=== PATIENT | male | born 1980 ===

== ENCOUNTER 2016-10-02 17:18 | Emergency (ER) | payer BC | END 2016-10-02 18:11 | disposition left against medical advice (07) | LOC: UCEAST 17:18 | DX: R07.81 Pleurodynia (principal); Z53.21 Procedure and treatment not carried out due to patient leaving prior to being seen by health care provider ==

== ENCOUNTER 2021-06-05 16:05 | Inpatient (IN) ==
[2021-06-05 20:33] LABS: ABS Lymphocytes 1.3 10^3/ul (1.0-4.8); ABS Monocytes 1.2 10^3/ul (0-0.8); ABS Neutrophils 7.4 10^3/ul (1.5-7.7); Eosinophil % 0.1 %; Hematocrit 47 % (42-52); Hemoglobin 16.7 g/dL (14.0-18.0); Lymphocyte % 12.8 %; Mean Corpuscular HGB Conc 36 g/dL (31-36); Mean Corpuscular Hemoglobin 33 pg (27-31); Mean Corpuscular Volume 94 fL (80-94); Mean Platelet Volume 7.8 fL (7.4-10.4); Nucleated Red Blood Cells % 0.4; Platelet Count 222 10^3/uL (150-450); Red Blood Count 5.01 10^6 /uL (4.18-5.48); Red Cell Distribution Width 14 % (10-15)
[2021-06-05 20:50] LABS: ALT 34 U/L (7-52); AST 31 U/L (13-39); Albumin/Globulin Ratio 1.2 (1-3); Alkaline Phosphatase 46 U/L (35-149); Blood Urea Nitrogen 65 mg/dL (6-24); CO2 Carbon Dioxide 18 mmol/L (22-32); Calcium 9.4 mg/dL (8.6-10.3); Chloride 74 mmol/L (101-111); EGFR African American 31.1 (>60); EGFR Non-African American 25.7 (>60); Globulin 3.4 g/dL (2-4); Glucose 130 mg/dL (70-100); Potassium 4.1 mmol/L (3.5-5.0); Total Protein 7.4 g/dL (6.4-8.9)
[2021-06-05 21:01] LABS: Anion Gap 18 mmol/L (2-11)
[2021-06-05 21:04] LABS: Sodium 110 mmol/L (135-145); Troponin I 0.08 ng/mL (<0.03)
[2021-06-05] MEDS ORDERED: NS 0.9% 1000 ml BAG 1,000 ML IV ONE (21:12)
[2021-06-05 21:20] LABS: Rapid COVID-19 Molecular Undetected (Undetected)
[2021-06-05] MEDS ORDERED: Ondansetron 4 mg VIAL 2 MG/ML 2 ml VIAL IV PRN (21:58)
[2021-06-05] MEDS ORDERED: Enoxaparin 30 MG/0.3 ML SYR SUBCUT SCH (22:00)
[2021-06-05 22:19] LABS: Calcium 8.9 mg/dL (8.6-10.3); Potassium 4.2 mmol/L (3.5-5.0)
[2021-06-05 22:25] LABS: EGFR African American 29.5 (>60); EGFR Non-African American 24.4 (>60)
[2021-06-05] MEDS ORDERED: NS 0.9% 1000 ml BAG 1,000 ML IV SCH (22:45)
[2021-06-05 22:47] LABS: Alcohol, S < 13 mg/dL (<13)
[2021-06-05 22:55] LABS: Erythrocyte Sed Rate 0 mm/Hr (0-14)
[2021-06-06] MEDS ORDERED: NS 0.9% 1000 ml BAG 1,000 ML IV ONE (00:38)
[2021-06-06 01:13] LABS: Blood Urea Nitrogen 68 mg/dL (6-24); CO2 Carbon Dioxide 18 mmol/L (22-32); Calcium 8.6 mg/dL (8.6-10.3); Chloride 78 mmol/L (101-111); EGFR African American 31.1 (>60); EGFR Non-African American 25.7 (>60); Glucose 116 mg/dL (70-100); Potassium 3.9 mmol/L (3.5-5.0)
[2021-06-06 01:21] LABS: Anion Gap 13 mmol/L (2-11); Troponin I 0.09 ng/mL (<0.03)
[2021-06-06 01:22] LABS: Sodium 109 mmol/L (135-145)
[2021-06-06 02:51] LABS: Urine Appearance Cloudy; Urine Bilirubin Negative (Negative); Urine Blood Negative (Negative); Urine Color Yellow; Urine Glucose Negative (Negative); Urine Ketones Negative (Negative); Urine Nitrite Negative (Negative); Urine Protein Negative (Negative); Urine Specific Gravity 1.012 (1.002-1.030); Urine Urobilinogen Negative (Negative)
[2021-06-06 03:23] LABS: Phosphorus 5.2 mg/dL (2.5-5.0)
[2021-06-06 03:54] LABS: Urine Creatinine Concentration 144.27 mg/dL; Urine Sodium Concentration < 18 mmol/L
[2021-06-06] MEDS: Pantoprazole VIAL 40 MG VIAL IV SCH ×2 (05:31→17:24)
[2021-06-06 05:54] LABS: ABS Lymphocytes 1.1 10^3/ul (1.0-4.8); ABS Neutrophils 6.4 10^3/ul (1.5-7.7); Eosinophil % 0.3 %; Hematocrit 40 % (42-52); Hemoglobin 14.3 g/dL (14.0-18.0); Lymphocyte % 13.3 %; Mean Corpuscular HGB Conc 36 g/dL (31-36); Mean Corpuscular Hemoglobin 33 pg (27-31); Mean Corpuscular Volume 93 fL (80-94); Nucleated Red Blood Cells % 0.2; Platelet Count 177 10^3/uL (150-450); Red Cell Distribution Width 14 % (10-15); White Blood Count 8.6 10^3/uL (3.5-10.8)
[2021-06-06 06:13] LABS: Blood Urea Nitrogen 68 mg/dL (6-24); CO2 Carbon Dioxide 17 mmol/L (22-32); Calcium 8.1 mg/dL (8.6-10.3); Chloride 80 mmol/L (101-111); EGFR African American 31.1 (>60); EGFR Non-African American 25.7 (>60); Glucose 111 mg/dL (70-100)
[2021-06-06 06:23] LABS: Anion Gap 15 mmol/L (2-11); Sodium 112 mmol/L (135-145); Troponin I 0.09 ng/mL (<0.03)
[2021-06-06] MEDS ORDERED: Perflutren Lipid Microsphere 3 ML VIAL ONE (08:31)
[2021-06-06 09:27] LABS: Calcium 8.1 mg/dL (8.6-10.3); EGFR Non-African American 24.8 (>60); Potassium 4.1 mmol/L (3.5-5.0)
[2021-06-06] MEDS ORDERED: Heparin DRIP 25,000 UNITS BAG 25,000 UNITS/500 ML BAG IV SCH (09:45)
[2021-06-06] MEDS ORDERED: Heparin 5000 UNITS/ML 1 mL VIAL IV SCH (10:00)
[2021-06-06 10:10] LABS: ABS Monocytes 1.1 10^3/ul (0-0.8); ABS Neutrophils 7.4 10^3/ul (1.5-7.7); Eosinophil % 0.3 %; Hematocrit 40 % (42-52); Hemoglobin 14.2 g/dL (14.0-18.0); Lymphocyte % 10.6 %; Mean Corpuscular HGB Conc 35 g/dL (31-36); Mean Corpuscular Hemoglobin 33 pg (27-31); Mean Corpuscular Volume 95 fL (80-94); Mean Platelet Volume 7.9 fL (7.4-10.4); Nucleated Red Blood Cells % 0.1; Platelet Count 175 10^3/uL (150-450); Red Blood Count 4.24 10^6 /uL (4.18-5.48); Red Cell Distribution Width 14 % (10-15); White Blood Count 9.7 10^3/uL (3.5-10.8)
[2021-06-06 10:27] LABS: Blood Urea Nitrogen 74 mg/dL (6-24); EGFR African American 31.1 (>60); EGFR Non-African American 25.7 (>60)
[2021-06-06 14:24] LABS: Blood Urea Nitrogen 72 mg/dL (6-24); CO2 Carbon Dioxide 16 mmol/L (22-32); Calcium 8.2 mg/dL (8.6-10.3); Chloride 82 mmol/L (101-111); EGFR African American 30.1 (>60); EGFR Non-African American 24.9 (>60); Glucose 113 mg/dL (70-100); Potassium 4.1 mmol/L (3.5-5.0)
[2021-06-06 14:38] LABS: Anion Gap 16 mmol/L (2-11); Sodium 114 mmol/L (135-145)
[2021-06-06] MEDS ORDERED: NS 0.9% 500 ml BAG 500 ML IV SCH (15:00)
[2021-06-06 15:15] LABS: Troponin I 0.09 ng/mL (<0.03)
[2021-06-06 16:03] LABS: Troponin I 0.09 ng/mL (<0.03)
[2021-06-06 17:59] LABS: Blood Urea Nitrogen 68 mg/dL (6-24); CO2 Carbon Dioxide 15 mmol/L (22-32); Calcium 8.4 mg/dL (8.6-10.3); Chloride 82 mmol/L (101-111); EGFR African American 30.4 (>60); EGFR Non-African American 25.1 (>60); Glucose 109 mg/dL (70-100)
[2021-06-06 18:04] LABS: Anion Gap 16 mmol/L (2-11); Sodium 113 mmol/L (135-145); Troponin I 0.08 ng/mL (<0.03)
[2021-06-06] MEDS ORDERED: NS 0.9% 1000 ml BAG 1,000 ML IV SCH (19:15)
[2021-06-06] MEDS ORDERED: Norepinephrine 16MCG/ML IVPRE 4,000 MCG/250 ML BAG IV SCH (21:00)
[2021-06-06 21:41] LABS: EGFR African American 31.1 (>60); EGFR Non-African American 25.7 (>60); Potassium 3.9 mmol/L (3.5-5.0)
[2021-06-06 21:55] LABS: Myoglobin 67.9 ng/mL (17.4-105.7)
[2021-06-06 22:03] LABS: TSH Ultra Thyroid Stim Horm 2.47 mcIU/mL (0.34-5.60)
[2021-06-07] MEDS: Heparin 5000 UNITS/ML 1 mL VIAL SUBCUT SCH ×4 (00:19→21:51)
[2021-06-07 01:15] LABS: Influenza A Molecular Negative (Negative); Influenza B Molecular Negative (Negative)
[2021-06-07 01:41] LABS: Urine Creatinine Concentration 131.78 mg/dL
[2021-06-07] MEDS: Pantoprazole VIAL 40 MG VIAL IV SCH ×2 (05:54→15:29)
[2021-06-07 07:31] LABS: EGFR African American 31.8 (>60); EGFR Non-African American 26.3 (>60); Potassium 3.8 mmol/L (3.5-5.0)
[2021-06-07 12:08] LABS: EGFR African American 33.2 (>60); EGFR Non-African American 27.5 (>60); Potassium 3.8 mmol/L (3.5-5.0)
[2021-06-07] MEDS ORDERED: KCL 20 MEQ/100 ML IVPREMIX 20 MEQ/100 ML BAG IV ONE (12:09)
[2021-06-07 17:31] LABS: Calcium 8.4 mg/dL (8.6-10.3); EGFR Non-African American 28.1 (>60)
[2021-06-07 21:12] LABS: Calcium 8.5 mg/dL (8.6-10.3); EGFR African American 37.4 (>60); EGFR Non-African American 30.9 (>60); Potassium 3.6 mmol/L (3.5-5.0)
[2021-06-07] MEDS ORDERED: D5W 250 ml BAG 250 ML IV ONE (21:26)
[2021-06-08 02:10] LABS: Venous Bicarbonate HCO3 21.2 mmol/L (24-28)
[2021-06-08 02:29] LABS: Calcium 8.5 mg/dL (8.6-10.3); EGFR African American 39.5 (>60); EGFR Non-African American 32.6 (>60); Potassium 3.5 mmol/L (3.5-5.0)
[2021-06-08] MEDS ORDERED: KCL 20 MEQ/100 ML IVPREMIX 20 MEQ/100 ML BAG IV ONE ×2 (04:23→06:01)
[2021-06-08] MEDS: Heparin 5000 UNITS/ML 1 mL VIAL SUBCUT SCH ×3 (05:11→22:16)
[2021-06-08] MEDS: Pantoprazole VIAL 40 MG VIAL IV SCH ×2 (05:11→17:58)
[2021-06-08 05:35] LABS: ABS Eosinophils 0.1 10^3/ul (0-0.6); ABS Lymphocytes 1.2 10^3/ul (1.0-4.8); ABS Monocytes 0.6 10^3/ul (0-0.8); ABS Neutrophils 4.1 10^3/ul (1.5-7.7); Hematocrit 39 % (42-52); Hemoglobin 13.5 g/dL (14.0-18.0); Lymphocyte % 20.1 %; Mean Corpuscular HGB Conc 35 g/dL (31-36); Mean Corpuscular Hemoglobin 34 pg (27-31); Mean Corpuscular Volume 96 fL (80-94); Mean Platelet Volume 7.9 fL (7.4-10.4); Platelet Count 153 10^3/uL (150-450); Red Blood Count 4.04 10^6 /uL (4.18-5.48); Red Cell Distribution Width 14 % (10-15)
[2021-06-08 05:55] LABS: Calcium 8.3 mg/dL (8.6-10.3); EGFR Non-African American 35.6 (>60); Magnesium 2.4 mg/dL (1.9-2.7); Phosphorus 3.7 mg/dL (2.5-5.0); Potassium 3.4 mmol/L (3.5-5.0)
[2021-06-08 08:04] LABS: Calcium 8.1 mg/dL (8.6-10.3); EGFR African American 45.6 (>60); EGFR Non-African American 37.7 (>60); Potassium 3.9 mmol/L (3.5-5.0)
[2021-06-08 12:31] LABS: Calcium 8.1 mg/dL (8.6-10.3); EGFR African American 48.4 (>60); Potassium 3.9 mmol/L (3.5-5.0)
[2021-06-08 15:44] LABS: Scleroderma Ab <0.2 U
[2021-06-08 16:15] LABS: Lead,Venous, B < 1.0 mcg/dL (<5.0); Submitting Laboratory Phone 6072744474
[2021-06-08 17:23] LABS: Calcium 8.3 mg/dL (8.6-10.3); EGFR African American 50.6 (>60); EGFR Non-African American 41.8 (>60); Potassium 3.7 mmol/L (3.5-5.0)
[2021-06-08 20:43] LABS: Calcium 8.4 mg/dL (8.6-10.3); EGFR African American 52.6 (>60); EGFR Non-African American 43.5 (>60); Potassium 3.6 mmol/L (3.5-5.0)
[2021-06-09] MEDS: Pantoprazole VIAL 40 MG VIAL IV SCH (05:03)
[2021-06-09] MEDS: Heparin 5000 UNITS/ML 1 mL VIAL SUBCUT SCH ×2 (05:03→14:34)
[2021-06-09 05:10] LABS: ABS Eosinophils 0.1 10^3/ul (0-0.6); ABS Monocytes 0.7 10^3/ul (0-0.8); ABS Neutrophils 4.4 10^3/ul (1.5-7.7); Hematocrit 39 % (42-52); Hemoglobin 13.6 g/dL (14.0-18.0); Lymphocyte % 15.7 %; Mean Corpuscular HGB Conc 35 g/dL (31-36); Mean Corpuscular Hemoglobin 34 pg (27-31); Mean Corpuscular Volume 97 fL (80-94); Mean Platelet Volume 8.1 fL (7.4-10.4); Platelet Count 157 10^3/uL (150-450); Red Blood Count 4.05 10^6 /uL (4.18-5.48); Red Cell Distribution Width 14 % (10-15); White Blood Count 6.1 10^3/uL (3.5-10.8)
[2021-06-09 05:42] LABS: Blood Urea Nitrogen 46 mg/dL (6-24); CO2 Carbon Dioxide 16 mmol/L (22-32); Calcium 8.2 mg/dL (8.6-10.3); Chloride 100 mmol/L (101-111); EGFR African American 59.2 (>60); EGFR Non-African American 48.9 (>60); Glucose 115 mg/dL (70-100); Magnesium 2.4 mg/dL (1.9-2.7); Sodium 126 mmol/L (135-145)
[2021-06-09 05:52] LABS: Anion Gap 10 mmol/L (2-11)
[2021-06-09 06:37] LABS: Potassium Redraw 3.6 mmol/L (3.5-5.0)
[2021-06-09] MEDS ORDERED: KCL 20 MEQ/100 ML IVPREMIX 20 MEQ/100 ML BAG IV ONE (06:43)
[2021-06-09 08:57] LABS: PCO2 Arterial 20 mmHg (35-45); PO2 Arterial 106 mmHg (80-100)
[2021-06-09 10:15] LABS: Calcium 8.3 mg/dL (8.6-10.3); EGFR African American 58.8 (>60); EGFR Non-African American 48.6 (>60)
[2021-06-09 12:54] LABS: Rapid COVID-19 Molecular Undetected (Undetected)
[2021-06-09 16:50] LABS: Anaplasma phagocytophilum Negative (Negative); B. miyamotoi PCR, B Negative (Negative); Babesia divergens/MO-1 Negative (Negative); Babesia ducani Negative (Negative); Ehrlichia chaffeensis Negative (Negative); Ehrlichia ewingii/canis Negative (Negative); Ehrlichia muris eauclairensis Negative (Negative)
[2021-06-09 16:51] VITALS: BP 117/53
[2021-06-09 17:18] LABS: Calcium 8.4 mg/dL (8.6-10.3); EGFR African American 63.4 (>60); EGFR Non-African American 52.4 (>60); Potassium 3.7 mmol/L (3.5-5.0)
[2021-06-09] MEDS ORDERED: Heparin DRIP 25,000 UNITS BAG 25,000 UNITS/500 ML BAG IV SCH (19:15)
== END 2021-06-09 19:15 | disposition short-term general hospital (02) | DRG 422 ==
LOC: ED 16:05 → EDHOLD 21:58 → ICU 21:59
PROVIDERS: ADMIT Student in an Organized Health Care Education/Training Program; ATTEND Internal Medicine